=== PATIENT | female | born 1980 | race Caucasian/White ===

== ENCOUNTER 2019-10-23 17:54 | Emergency (ER) | payer OTHER ==
[2019-10-23] MEDS ORDERED: HYDROmorphone 1 MG/ML Syringe IVPUSH ONE (18:01)
[2019-10-23] MEDS ORDERED: HYDROmorphone 1 MG/ML Syringe ONE (18:01)
[2019-10-23] MEDS ORDERED: Propofol 200 MG/20 ML SDV ONE (18:07)
--- NOTE | 2019-10-23 18:23 | EDM.PDOC ---
ED HPI GENERAL MEDICAL PROBLEM - General Chief Complaint: Upper Extremity Injury/Pain Stated Complaint: LEFT SHOULDER INJURY Time Seen by Provider: 10/23/19 18:00 Source of Information: Reports: Patient History Limitations: Reports: No Limitations - History of Present Illness INITIAL COMMENTS - FREE TEXT/NARRATIVE: 38-year-old female presenting to the emergency department for evaluation treatment of left shoulder injury. Injury occurred just prior to arrival by approximately 1 to 2 hours. Patient was slalom skiing when she fell and was tugged by the rope in such a way that it caused sudden pain in her left shoulder. Pain gradually worsened over the past hour. Patient denies any numbness or tingling in her left upper extremity. Patient denies any neck pain, loss of consciousness or any other associated symptoms. Onset: Today Onset Date: 10/23/19 Onset Time: 16:00 Duration: Getting Worse Location: Reports: Upper Extremity, Left Quality: Reports: Throbbing Severity: Severe Improves with: Reports: Immobilization Worsens with: Reports: Movement Context: Reports: Trauma Associated Symptoms: Reports: No Other Symptoms - Related Data Allergies Allergy/AdvReac Type Severity Reaction Status Date / Time No Known Allergies Allergy Verified 10/23/19 18:21 Home Meds: Home Meds NK [No Known Home Meds] 10/23/19 [History] Past Medical History - Past Health History Medical/Surgical History: Denies Medical/Surgical History Social & Family History - Family History Family Medical History: Noncontributory Review of Systems - Review of Systems Review Of Systems: Comprehensive ROS is negative, except as noted in HPI. ED EXAM, GENERAL - Physical Exam Exam: See Below Exam Limited By: No Limitations General Appearance: Alert Head: Atraumatic, Normocephalic Neck: Normal Inspection, Supple, Non-Tender, Full Range of Motion Respiratory/Chest: No Respiratory Distress, Lungs Clear, Normal Breath Sounds, No Accessory Muscle Use, Chest Non-Tender Cardiovascular: Normal Peripheral Pulses, Regular Rate, Rhythm, No Edema, No Gallop, No JVD, No Murmur, No Rub Peripheral Pulses: 2+: Radial (R) GI/Abdominal: Normal Bowel Sounds, Soft, Non-Tender, No Organomegaly, No Distention, No Abnormal Bruit, No Mass Back Exam: Normal Inspection, Full Range of Motion, NT Extremities: Arm Pain (Left-sided with step-off deformity of shoulder. Normal range of motion at left elbow and wrist.) Neurological: Alert, Oriented, No Motor/Sensory Deficits (Left upper extremity), Other (GCS 15.) Skin Exam: Warm, Dry, Intact ED TRAUMA EXTREMITY PROCEDURES - Joint Reduction Left Shoulder Pre-Procedure NV Status: Normal Post-Procedure NV Status: Normal Technique: Traction/Counter Traction Number of Attempts: 1 Post-Reduction Imaging: Completely Reduced, No Fracture Seen Joint Reduction Complications: No Progress/Comments: Patient tolerated procedure well and felt improved upon recovery. Course - Vital Signs Last Recorded V/S: Last Vital Signs Temp 96.6 F L 10/23/19 18:27 Pulse 77 10/23/19 18:27 Resp 18 10/23/19 18:27 BP 117/74 10/23/19 18:27 Pulse Ox 100 10/23/19 18:27 - Orders/Labs/Meds Orders: Active Orders 24 hr Category Date Time Status Shoulder Comp Lt [CR] Stat Exams 10/23/19 18:01 Ordered Shoulder Comp Lt [CR] Stat Exams 10/23/19 18:15 Ordered Meds: Medications Discontinued Medications Generic Name Dose Route Start Last Admin Trade Name Freq PRN Reason Stop Dose Admin Hydromorphone HCl 1 mg 10/23/19 18:01 Dilaudid IVPUSH 10/23/19 18:02 ONETIME ONE Hydromorphone HCl Confirm 10/23/19 18:01 Dilaudid Administered 10/23/19 18:02 Dose 1 mg .ROUTE .STK-MED ONE Propofol Confirm 10/23/19 18:07 Diprivan 20 Ml Administered 10/23/19 18:08 Dose 200 mg .ROUTE .STK-MED ONE Propofol 80 mg 10/23/19 18:28 Diprivan 20 Ml IVPUSH 10/23/19 18:29 ONETIME ONE - Radiology Interpretation Free Text/Narrative:: 1 view left shoulder Dislocation, no fracture 1 view left shoulder repeat Relocation of previously seen dislocation, no fracture Departure - Departure Time of Disposition: 18:30 Disposition: Home, Self-Care 01 Condition: Good Clinical Impression: Shoulder dislocation Qualifiers: Encounter type: initial encounter Laterality: left Qualified Code(s): S43.005A - Unspecified dislocation of left shoulder joint, initial encounter - Discharge Information Instructions: Shoulder Dislocation, [id number] Referrals: PCP,None [Primary Care Provider] - Forms: ED Department Discharge Additional Instructions: Maintain use of shoulder immobilizer as needed ideally for the next 24 to 48 hours. May carefully remove following this however be cautious with movement of left shoulder to reduce risk of repeat dislocation. If apprehensive maintain and continue use of shoulder immobilizer until further follow-up. Recommend to follow-up with primary care doctor and/or orthopedic surgeon is in 7 to 10 days as needed. Recommend use of ibuprofen for 100 mg every 6 hours for pain. If severe pain breakthrough recommend 1 Percocet tablet every 6 hours by mouth but avoid if possible. If he develop any significant or severe worsening symptoms seek prompt medical attention in an urgent and/or emergent setting. Sepsis Event Note (ED) - Focused Exam Vital Signs: Vital Signs Temp Pulse Resp BP Pulse Ox 10/23/19 18:27 96.6 F L 77 18 117/74 100 10/23/19 18:05 96.7 F L 96 32 H 104/71 100 - My Orders Last 24 Hours: My Active Orders 10/23/19 18:01 Shoulder Comp Lt [CR] Stat 10/23/19 18:15 Shoulder Comp Lt [CR] Stat - Assessment/Plan Last 24 Hours: My Active Orders 10/23/19 18:01 Shoulder Comp Lt [CR] Stat 10/23/19 18:15 Shoulder Comp Lt [CR] Stat Assessment:: 38-year-old healthy female with acute left shoulder dislocation while slalom skiing. Neurovascularly intact. The injury was reduced without complication with moderate sedation. Patient was placed in a shoulder immobilizer for comfort. She has been counseled on postreduction cares. Ibuprofen recommended for main pain control. 4 Percocet tablets prescribed for severe breakthrough pain. Advised to follow-up with primary care doctor and/or orthopedist in the next 1 to 2 weeks as needed medically stable and improved. Discharge home. Plan: 1. Maintain use of shoulder immobilizer for next 48 hours. Upon removal be cautious with movement at left shoulder to decrease risk of redislocation. 2. Ibuprofen 400 mg every 6 hours for pain. For severe, breakthrough pain may use 1 tablet Percocet by mouth every 6 hours. Avoid if possible. 3. Present with primary care doctor orthopedics in 7 to 10 days as needed.
[2019-10-23] MEDS ORDERED: Propofol 200 MG/20 ML SDV IVPUSH ONE (18:28)
--- NOTE | 2019-10-25 10:31 | CR ---
Shoulder Comp Lt, Shoulder 1V Lt CLINICAL HISTORY: Injury FINDINGS: There is anterior inferior dislocation of the humerus. No fracture seen. Impression: Anterior dislocation of the shoulder Shoulder Comp Lt, Shoulder 1V Lt CLINICAL HISTORY: Postreduction FINDINGS: There has been reduction of the anterior dislocation. There is external rotation limiting evaluation of the humerus. Impression: Reduction of previous dislocation
== END 2019-10-23 19:08 | disposition home or self-care (01) ==
LOC: JP.ED 17:54
DX: S43.005A Unspecified dislocation of left shoulder joint, initial encounter (principal); W19.XXXA Unspecified fall, initial encounter
CPT/HCPCS: 23650; 73020; 73030; 96374; 99283; J1170; J2704; 99284